=== PATIENT | male | born 1995 | race Caucasian/White ===

== ENCOUNTER 2017-10-22 19:17 | Emergency (ER) | payer SELFPAY | END 2017-10-22 21:17 | disposition left against medical advice (07) | LOC: ER 21:07 | DX: Z53.21 Procedure and treatment not carried out due to patient leaving prior to being seen by health care provider (principal) ==

== ENCOUNTER 2017-10-22 23:44 | Emergency (ER) | payer SELFPAY ==
[~2017-10-22] VITALS: Ht 177.8 cm; Wt 85.4 kg
[2017-10-23 02:00] VITALS: BP 119/84
== END 2017-10-23 02:01 | disposition home or self-care (01) ==
LOC: ER 10-23 01:33
DX: N39.0 Urinary tract infection, site not specified (principal); F17.200 Nicotine dependence, unspecified, uncomplicated; F12.10 Cannabis abuse, uncomplicated
CPT/HCPCS: 99283